=== PATIENT | female | born 2000 | race Caucasian/White ===

== ENCOUNTER 2019-07-06 17:54 | Emergency (ER) | payer OTHER, SELFPAY ==
--- NOTE | 2019-07-06 18:46 | ED.GENADULT ---
HPI - General Adult General Chief complaint: Upper Respiratory Infection Stated complaint: Flu like symptoms Time Seen by Provider: 07/06/19 19:05 Source: patient Mode of arrival: ambulatory Limitations: no limitations History of Present Illness HPI narrative: 18-year-old female patient presents to the [facility] with complaints of cold symptoms that started about 2 to 3 days ago. Patient states she has had nausea, vomiting, diarrhea and slight sore throat. Patient states last time she vomited was about 20 minutes prior to arrival. Patient states she has been unable to keep down any food or fluid today. Patient denies any fevers that she is aware of. Denies any ear pain. Denies any stuffy nose, runny nose. Denies any coughing, chest pain, shortness of breath. Denies or breast-feeding. Patient states her last period was about 2 weeks ago. Denies take anything for her symptoms since they began. Patient denies getting a flu shot. Related Data Allergies Allergy/AdvReac Type Severity Reaction Status Date / Time No Known Allergies Allergy Verified 07/06/19 19:01 Review of Systems Review of Systems: Narrative: CONSTITUTIONAL: Denies fever, chills, or sweats. EYES: Denies visual changes, redness, or discharge. ENT: Denies rhinorrhea, congestion, positive sore throat, denies otalgia. CARDIOVASCULAR: Denies chest pain, palpitations, or edema. RESPIRATORY: Denies cough or dyspnea. GASTROINTESTINAL: Positive abdominal pain, nausea, vomiting, and diarrhea. GENITOURINARY: Denies dysuria or hematuria. SKIN: Denies rash or itching. MUSCULOSKELETAL: Denies back pain, joint pain, or myalgia. NEUROLOGIC: Denies headache, numbness, or weakness. PSYCHIATRIC: Denies anxiety or depression. PMFSH Comments At the time of my signature I agree with nursing past medical history, surgical, social, and family history. There is no relevant family history pertinent to the presenting complaint. Exam Narrative: Exam Narrative: GENERAL: Well-appearing, well-nourished, and in no acute distress. HEAD: Normocephalic, atraumatic. EYES: PERRLA and EOMI. ENT: Nares clear, no rhinorrhea or epistaxis. Mucous membranes moist. NECK: Supple. No lymphadenopathy CHEST: Clear to auscultation. No respiratory distress. HEART: Regular rate and rhythm. No murmur heard. Normal peripheral pulses. ABDOMEN: Soft, flat, nondistended. No guarding, rebound tenderness, or rigid. Very slight tenderness noted to the left upper quadrant, right lower quadrant and the right upper quadrant. No pulsatilla masses. Hyperactive bowel sounds present in all four quadrants. No organomegaly. Negative Kaufman?s sign. No periumbicial tenderness. No Supra public tenderness or distension. Good femoral pulses bilaterally. No hernia noted. No scars or surface trauma. EXTREMITIES: Normal range of motion. No edema. SKIN: Warm, dry, no rash. NEURO: No focal deficits. Alert and oriented x3. Course Reevaluation(s) Reevaluation #1: Notify patient that she is negative today for strep and the flu. Discussed with her this is probably some type of viral gastroenteritis that is causing the symptoms. Discussed with patient that the symptoms can last anywhere from 5 to 7 days. Discussed with patient when the syndrome with some Zofran for her symptoms and if they continue to worsen and her abdominal pain worsens or she continues to vomit that she would need to go the ER for further evaluation. Patient verbalized understanding denies any other questions or concerns. Date: 07/06/19 Time: 19:25 Vital Signs Vital signs: Vital Signs Temperature 36.7 C 07/06/19 18:55 Pulse Rate 88 07/06/19 18:55 Respiratory Rate 18 07/06/19 18:55 Blood Pressure 114/70 07/06/19 18:55 Pulse Oximetry 100 07/06/19 18:55 Temperature 36.7 C 07/06/19 18:55 Pulse Rate 88 07/06/19 18:55 Respiratory Rate 18 07/06/19 18:55 Blood Pressure 114/70 07/06/19 18:55 Pulse Oximetry 100 07/06/19 18:55
[2019-07-06 18:55] VITALS: BP 114/70; PULSE 88; RESP 18; TEMP 36.7; O2SAT 100
[2019-07-06] MEDS: ONDANSETRON HCL ODT 4 MG TABLET PO (19:13)
== END 2019-07-06 19:41 | disposition home or self-care (01) ==
PROVIDERS: Emergency Provider Nurse Practitioner Family
DX: A08.4 Viral intestinal infection, unspecified (principal); E28.2 Polycystic ovarian syndrome
CPT/HCPCS: 87081; 87804; 87880; 99213; A9270; G0463

== ENCOUNTER 2021-07-15 08:40 | Emergency (ER) | payer OTHER, SELFPAY ==
[2021-07-15 08:55] VITALS: BP 130/79; PULSE 98; RESP 18; TEMP 37.4; O2SAT 100
--- NOTE | 2021-07-15 09:02 | ED.URI ---
HPI - URI/Sore Throat General Chief Complaint: Upper Respiratory Infection Stated Complaint: sore throat Time Seen by Provider: 07/15/21 09:02 Source: patient, RN notes reviewed and old records reviewed Mode of arrival: ambulatory Limitations: no limitations History of Present Illness HPI Narrative: 20-year-old female who presents to [facility] with complaints of sinus congestion and drainage since yesterday with sore throat, cough which is productive and some nausea which started this morning. Patient states that throat is so sore it is difficult to swallow has history of previous strep throat infections. Patient reports that she had COVID June 23. Patient works at [employer] and concerned about possible exposure to kids if she has strep which she has had several times in the past. MD elicited complaint: sore throat Related Data Home Medications Medication Instructions Recorded Confirmed duloxetine [Cymbalta] 20 mg PO BID 07/15/21 07/15/21 Allergies Allergy/AdvReac Type Severity Reaction Status Date / Time No Known Allergies Allergy Verified 07/15/21 09:11 Review of Systems Review of Systems: CONSTITUTIONAL: Denies fever, chills, or sweats. EYES: Denies visual changes, redness, or discharge. ENT: Positive for rhinorrhea, congestion, sore throat, no otalgia. CARDIOVASCULAR: Denies chest pain, palpitations, or edema. RESPIRATORY: Positive for cough denies dyspnea. GASTROINTESTINAL: Denies abdominal pain,some nausea,no vomiting, or diarrhea. GENITOURINARY: Denies dysuria or hematuria. SKIN: Denies rash or itching. MUSCULOSKELETAL: Denies back pain, joint pain, or myalgia. NEUROLOGIC: Denies headache, numbness, or weakness. PSYCHIATRIC: Positive anxiety or depression. All systems reviewed & are unremarkable except as noted in HPI and below [facility] Past Medical History Medical History (Updated 07/15/21 @ 11:10 by Birdie Maldonado NP) Anxiety COVID-19 PCOS (polycystic ovarian syndrome) Strep throat Family History Family History (Updated 07/15/21 @ 11:10 by Birdie Maldonado NP) Father Hypertension Grandparent Cerebrovascular accident Social History Social History (Updated 07/15/21 @ 11:10 by Birdie Maldonado NP) Smoking status: Never smoker Alcohol intake: current Alcohol use details: social Substance use: never Living arrangements: with family Gender identity (if verbalized by the patient): Female Comments At time of signature, agree with nursing past medical, surgical, social and family history. There is no relevant family history pertinent to the presenting complaint Exam Narrative: GENERAL: Well-appearing, well-nourished, and in no acute distress. HEAD: Normocephalic, atraumatic. EYES: PERRLA and EOMI. ENT: Nares red, with clear rhinorrhea no epistaxis. Mucous membranes moist.TM's normal with good light reflex, throat red with no lesions or exudates, positive for red swollen tonsils. NECK: Supple. no lymphadenopathy CHEST: Clear to auscultation. No respiratory distress. some cough with yellowish sputum,SAO2 100% on room air, no tachypnea or accessory muscle use HEART: Regular rate and rhythm. No murmur heard. Normal peripheral pulses. ABDOMEN: Soft, nontender, nondistended, normal active bowel sounds. EXTREMITIES: Normal range of motion. No edema. SKIN: Warm, dry, no rash. NEURO: No focal deficits. Alert and oriented x3. Course Course Level of Care: Express Care Visit Vital Signs Vital signs: Vital Signs Temperature 37.4 C 07/15/21 08:55 Pulse Rate 98 07/15/21 08:55 Respiratory Rate 18 07/15/21 08:55 Blood Pressure 130/79 07/15/21 08:55 Pulse Oximetry 100 07/15/21 08:55 Temperature 37.4 C 07/15/21 08:55 Pulse Rate 98 07/15/21 08:55 Respiratory Rate 18 07/15/21 08:55 Blood Pressure 130/79 07/15/21 08:55 Pulse Oximetry 100 07/15/21 08:55 MDM - URI/Sore Throat Differential Diagnosis Differential diagnosis: Likely
== END 2021-07-15 09:39 | disposition home or self-care (01) ==
PROVIDERS: Emergency Provider Registered Nurse
DX: J03.90 Acute tonsillitis, unspecified (principal); F41.9 Anxiety disorder, unspecified; Z86.16 Personal history of COVID-19; E28.2 Polycystic ovarian syndrome
CPT/HCPCS: 87081; 87880; 99213; G0463

== ENCOUNTER 2021-11-25 11:23 | Emergency (ER) | payer OTHER, SELFPAY ==
[2021-11-25 11:30] VITALS: BP 139/98; PULSE 98; RESP 14; TEMP 37.7; O2SAT 100
--- NOTE | 2021-11-25 11:37 | ED.NAVMDI ---
HPI - Nausea/Vomiting/Diarrhea General Chief complaint: Nausea/Vomiting/Diarrhea Stated complaint: Vomiting/Diarrhea Time Seen by Provider: 11/25/21 11:30 Source: patient, family and RN notes reviewed History of Present Illness HPI Narrative: Patient is a 21-year-old female who presents the urgent care with her mother with complaints of vomiting, diarrhea, abdominal pain and nausea. Patient states that she woke up with the symptoms at 1 AM today and her primary care doctor would not see her in the office. Patient states that she is discussed several times with her PCP regarding her constant loose stools and abdominal discomforts. Patient has never been worked up for IBS but believes she may have some type of IBS diagnosis. Patient denies any blood in the urine or stool. Denies any urinary symptoms. Patient has not taken anything [id number] for her symptoms. No acute distress noted. Patient read the plan of care. Some parts of this dictation were generated by voice recognition software and may contain typographical and/or grammatical inaccuracies. Related Data Home Medications Medication Instructions Recorded Confirmed No Home Medications 11/25/21 11/25/21 Allergies Allergy/AdvReac Type Severity Reaction Status Date / Time No Known Allergies Allergy Verified 11/25/21 11:36 Review of Systems Review of Systems: CONSTITUTIONAL: Denies fever, chills, or sweats. EYES: Denies visual changes, redness, or discharge. ENT: Denies rhinorrhea, congestion, sore throat, or otalgia. CARDIOVASCULAR: Denies chest pain, palpitations, or edema. RESPIRATORY: Denies cough or dyspnea. GASTROINTESTINAL: Reports no abdominal pain, nausea, vomiting or diarrhea GENITOURINARY: Denies dysuria or hematuria. SKIN: Denies rash or itching. MUSCULOSKELETAL: Denies back pain, joint pain, or myalgia. NEUROLOGIC: Denies headache, numbness, or weakness. All other systems reviewed are negative, except as documented in HPI. [facility] Past Medical History Medical History (Updated 11/25/21 @ 11:48 by APRIL Main) Anxiety COVID-19 PCOS (polycystic ovarian syndrome) Strep throat Family History Family History (Updated 07/15/21 @ 11:10 by Birdie Maldonado NP) Father Hypertension Grandparent Cerebrovascular accident Social History Social History (Updated 07/15/21 @ 11:10 by Birdie Maldonado NP) Smoking status: Never smoker Alcohol intake: current Alcohol use details: social Substance use: never Gender identity (if verbalized by the patient): Female Comments At the time of my signature, I reviewed and agree with the nursing past medical, surgical, social, and family history. There is no relevant family history pertinent to the patient complaint. Exam Narrative: GENERAL: This is a well-nourished, well-developed patient, in no apparent distress. HEAD: normocephalic, atraumatic. EYES: PERRL. Sclera clear/white. Vision is grossly intact. EARS: External ears normal NOSE: External nose normal with no obvious nasal discharge, nares without redness, no rhinorrhea. THROAT: Mucous membranes moist NECK: Neck supple CARDIOVASCULAR: Regular rate and rhythm without murmurs, gallops, or rubs. RESPIRATORY: Clear to auscultation. Breath sounds equal bilaterally. No wheezes, rales, or rhonchi. GASTROINTESTINAL: Abdomen soft, diffuse abdominal tenderness, nondistended. Bowel sounds are hypoactive. SKIN: warm, intact with no suspicious lesions or rash, good texture and turgor. NEURO: awake, alert, and oriented to person, place and time. There were no obvious focal neurologic abnormalities. EXTREMITIES: No clubbing, cyanosis, or edema. BACK: Bilateral CVA tenderness Course Course Level of Care: Express Care Visit Vital Signs Vital signs: Vital Signs Temperature 99.9 F H 11/25/21 11:30 Pulse Rate 98 11/25/21 11:30 Respiratory Rate 14 11/25/21 11:30 Blood Pressure 139/98 H 11/25/21 11:30 Pulse Oximetry 100
[2021-11-25 11:38] VITALS: BP 139/98; PULSE 98; RESP 14; TEMP 37.7; O2SAT 100
== END 2021-11-25 11:51 | disposition short-term general hospital (02) ==
PROVIDERS: Emergency Provider Nurse Practitioner Family
DX: R10.84 Generalized abdominal pain (principal); E28.2 Polycystic ovarian syndrome; Z86.16 Personal history of COVID-19
CPT/HCPCS: 99212; G0463

== ENCOUNTER 2022-01-21 10:29 | Emergency (ER) | payer OTHER, SELFPAY ==
[2022-01-21 10:40] VITALS: BP 101/54; PULSE 111; RESP 16; TEMP 37; O2SAT 100
--- NOTE | 2022-01-21 11:25 | ED.URI ---
HPI - URI/Sore Throat General Chief Complaint: Upper Respiratory Infection Stated Complaint: sore throat Time Seen by Provider: 01/21/22 11:00 Source: patient and RN notes reviewed Mode of arrival: ambulatory Limitations: no limitations History of Present Illness HPI Narrative: 21-year-old female presents to concern for sore throat. She reports nasal congestion, rhinorrhea, occasional cough. She reports history of strep throat. She reports she is taken no [id number] medications for her symptoms. She denies fever, body aches, chills, sweats, shortness of breath. She denies known sick contacts MD elicited complaint: sore throat and nasal congestion Related Data Allergies Allergy/AdvReac Type Severity Reaction Status Date / Time No Known Allergies Allergy Verified 01/21/22 11:00 Review of Systems Review of Systems: CONSTITUTIONAL: Reports malaise. Denies chills, sweats, or fever. EYES: Denies visual changes, redness, or discharge. ENT: Reports rhinorrhea, congestion, and sore throat. Denies sinus pain, otalgia CARDIOVASCULAR: Denies chest pain, palpitations, or edema. RESPIRATORY: Reports occasional cough. Denies dyspnea. GASTROINTESTINAL: Denies abdominal pain, nausea, vomiting, diarrhea SKIN: Denies rash or itching. MUSCULOSKELETAL: Denies myalgia. NEUROLOGIC: Denies headache. All systems reviewed & are unremarkable except as noted in HPI and below PMFSH Past Medical History Medical History (Updated 01/21/22 @ 11:52 by Julieta Kay NP) Anxiety COVID-19 PCOS (polycystic ovarian syndrome) Strep throat Family History Family History (Updated 07/15/21 @ 11:10 by Birdie Maldonado NP) Father Hypertension Grandparent Cerebrovascular accident Social History Social History (Updated 07/15/21 @ 11:10 by Birdie Maldonado NP) Smoking status: Never smoker Alcohol intake: current Alcohol use details: social Substance use: never Gender identity (if verbalized by the patient): Female Comments At time of signature, agree with nursing past medical, surgical, social and family history. There is no relevant family history pertinent to the presenting complaint Exam Narrative: GENERAL: Well-appearing, well-nourished, and in no acute distress. HEAD: Normocephalic EYES: PERRLA, conjunctivae clear ENT: Nares clear, turbinates edematous and erythematous, clear discharge. Mucous membranes moist. TM pearly latif with dull light reflex bilaterally; no tragal tenderness. Oropharynx mildly erythematous without lesions. Tonsils not enlarged and without exudate, no drooling, no hoarseness, no trismus, uvula midline. NECK: Supple. No lymphadenopathy CHEST: Clear to auscultation, breath sounds equal. No wheezing, rhonchi, rales, or stridor. No respiratory distress, speaks in full sentences. HEART: Regular rate and rhythm. No murmur heard. SKIN: Warm, dry, no rash. NEURO: Alert and oriented x3. PSYCH: Normal mood and affect Course Course Emergency Course: Patient is aware of diagnosis, understands and agrees to treatment plan. Anticipatory guidance given. Patient agrees to follow-up as directed and is aware of reasons to seek care at the emergency department. Portions of this record may have been created with voice recognition software Level of Care: Express Care Visit Vital Signs Vital signs: Vital Signs Temperature 98.6 F 01/21/22 10:40 Pulse Rate 111 H 01/21/22 10:40 Respiratory Rate 16 01/21/22 10:40 Blood Pressure 101/54 L 01/21/22 10:40 Pulse Oximetry 100 01/21/22 10:40 Oxygen Delivery Room Air 01/21/22 10:40 Temperature 98.6 F 01/21/22 10:40 Pulse Rate 111 H 01/21/22 10:40 Respiratory Rate 16 01/21/22 10:40 Blood Pressure 101/54 L 01/21/22 10:40 Pulse Oximetry 100 01/21/22 10:40 Oxygen Delivery Room Air 01/21/22 10:40 Reviewed. MDM - URI/Sore Throat MDM Narrative Medical decision making narrative: Differential diagnosis considered: Connelly virus,
== END 2022-01-21 11:55 | disposition home or self-care (01) ==
LOC: EXPBETH 10:34
PROVIDERS: Emergency Provider Nurse Practitioner
DX: J03.90 Acute tonsillitis, unspecified (principal); Z20.822 Contact with and (suspected) exposure to COVID-19; E28.2 Polycystic ovarian syndrome; Z86.16 Personal history of COVID-19
CPT/HCPCS: 87081; 87426; 87804; 99213; C9803; G0463